=== PATIENT | male | born 1935 | race Caucasian/White ===

== ENCOUNTER 2024-03-08 08:56 | Outpatient (CLI) | payer MEDICARE ==
[2024-03-08] MEDS ORDERED: Magnevist 469MG/ML 20 ML VIAL ONE (10:24)
== END 2024-03-08 08:57 | disposition home or self-care (01) ==
LOC: CSHMRI 08:56
PROVIDERS: ATTEND Emergency Medicine
DX: R22.2 Localized swelling, mass and lump, trunk (principal); Z85.46 Personal history of malignant neoplasm of prostate; C79.51 Secondary malignant neoplasm of bone; C77.4 Secondary and unspecified malignant neoplasm of inguinal and lower limb lymph nodes; N48.9 Disorder of penis, unspecified
CPT/HCPCS: 72197; 82565